=== PATIENT | female | born 1955 | race Caucasian/White ===

== ENCOUNTER 2017-09-24 19:26 | Emergency (ER) | payer BC, OTHER ==
[2017-09-24] MEDS ORDERED: BACITRACIN OINT TOP STA (20:23)
[2017-09-24] MEDS ORDERED: ACETAMINOPHEN 325 MG TABLET PO STA (20:23)
[2017-09-24] MEDS ORDERED: IBUPROFEN 400 MG TABLET PO STA (20:23)
[2017-09-24] MEDS ORDERED: IBUPROFEN 400 MG TABLET PO ONE (20:28)
[2017-09-24] MEDS ORDERED: ACETAMINOPHEN 500 MG TABLET PO ONE (20:28)
[2017-09-24] MEDS ORDERED: ACETAMINOPHEN 325 MG TABLET PO ONE (20:34)
--- NOTE | 2017-09-24 20:58 | ED Physician Documentation ---
PD HPI UPPER EXT INJURY - Stated complaint Stated Complaint: ARM BURN - Chief complaint Chief Complaint: Burn - History obtained from History obtained from: Patient, Friend - History of Present Illness Location: Right, Forearm Type of injury: Burn Where injury occurred: Home Timing - onset: How many minutes ago (30) Timing - details: Abrupt onset, Still present Worsened by: Palpating Similar symptoms before: Has not had sx before Recently seen: Not recently seen - Additonal information Additional information: Patient is a 61 year old female with no significant past medical history who is presenting to the emergency department for a burn. Patient states she was making pasta and she spilled the boiling water on her right upper arm. Review of Systems Constitutional: denies: Fever, Chills Eyes: reports: Reviewed and negative Ears: reports: Reviewed and negative Nose: reports: Reviewed and negative Throat: reports: Reviewed and negative Cardiac: reports: Reviewed and negative Respiratory: reports: Reviewed and negative GI: reports: Reviewed and negative : reports: Reviewed and negative Skin: reports: Rash, Lesions Musculoskeletal: reports: Extremity pain Neurologic: denies: Generalized weakness, Focal weakness, Numbness Immunocompromised: denies: Immunocompromised PD PAST MEDICAL HISTORY - Past Medical History Past Medical History: Yes Endocrine/Autoimmune: HyPOthyroidism - Past Surgical History Past Surgical History: Yes General: Cholecystectomy, 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, Oophrectomy - Present Medications Home Medications: Ambulatory Orders Medication Instructions Recorded Confirmed Calcium Carbonate/Vitamin D3 1 each PO DAILY 09/24/17 09/24/17 [Calcium 250-Vit D3 125 Tablet] Digestive 8/L.acidoph/Pectin 1 tab PO DAILY 09/24/17 09/24/17 [Digestive Enzymes Tablet] Magnesium 250 mg PO DAILY 09/24/17 09/24/17 Thyroid,Pork [Nature-Throid] 1 tab PO DAILY 09/24/17 09/24/17 - Allergies Allergies/Adverse Reactions: Allergies Allergy/AdvReac Type Severity Reaction Status Date / Time ciprofloxacin [From Cipro] Allergy Rash Verified 09/24/17 19:50 Penicillins Allergy Unknown Verified 09/24/17 19:49 Sulfa (Sulfonamide Allergy Rash Verified 09/24/17 19:50 Antibiotics) - Social History Does the pt smoke?: No Smoking Status: Never smoker Does the pt drink ETOH?: No Does the pt have substance abuse?: No - Immunizations Immunizations are current?: Yes - POLST Patient has POLST: No PD ED PE NORMAL - Vitals Vital signs reviewed: Yes - General General: Alert and oriented X 3, Well developed/nourished - HEENT HEENT: Atraumatic, PERRL - Cardiac Cardiac: RRR, No murmur - Respiratory Respiratory: No respiratory distress - Abdomen Abdomen: Non distended - Neuro Neuro: Alert and oriented X 3, No motor deficit, No sensory deficit, Normal speech Eye Opening: Spontaneous Motor: Obeys Commands Verbal: Oriented GCS Score: 15 - Psych Psych: Normal mood PD ED PE EXPANDED - General General: Alert, In Pain - Derm Derm: Burn(s) (partial thickness burn of distal forearm with one blister. approx 1% of bsa. 6cm, no circumfrential) - Extremities Extremities: Right forearm (burn of distal portion of anterior forearm) Results - Vitals Vitals: Vital Signs - 24 hr 09/24/17 09/24/17 19:30 21:14 Temperature 36.6 C 36.6 C Heart Rate 83 74 Respiratory 18 18 Rate Blood Pressure 152/95 H 144/96 H O2 Saturation 97 98 Oxygen O2 Source Room air PD MEDICAL DECISION MAKING - ED course Complexity details: reviewed old records, reviewed results, re-evaluated patient , considered differential, d/w patient, d/w wealth management consultant ED course: Patient was seen and examined at bedside. Patient stated that she did not want any narcotics and was treated with tylenol and ibuprofen. Burn was dressed and the burn center was called. Follow up appointment was arranged, and patient was given the exercises to keep the area mobile. patient and friends felt comfortable with the plan and were stable for discharge with outpatient follow up. Departure - Departure Disposition: 01 Home, Self Care Clinical Impression: Partial thickness burn of right forearm Condition: Good Instructions: ED Burn D 2nd Follow-Up: Ana Kee MD [Primary Care Provider[facility] Comments: Your symptoms today are being caused by a partial thickness burn. You can take motrin or tylenol as needed for pain and keep the area clean and dry. You should apply the bacitracin and dressing daily. You should due the burn videos , 307 on you tube, every hour. You will be getting a call by the burn center in the next few days to schedule a follow up appointment. If you don't hear from them call the number listed on your handout. You should monitor for signs of infection. You may return to the emergency department at any time for new, worsening or uncontrollable symptoms. Discharge Date/Time: 09/24/17 21:17
[2017-09-24] MEDS ORDERED: BACITRACIN OINT TOP ONE (21:12)
[2017-09-24 21:14] VITALS: BP 144/96
== END 2017-09-24 21:17 | disposition home or self-care (01) ==
LOC: ED 19:26
DX: T22.211A Burn of second degree of right forearm, initial encounter (principal); T31.0 Burns involving less than 10% of body surface; X12.XXXA Contact with other hot fluids, initial encounter; Y93.G3 Activity, cooking and baking; Y92.010 Kitchen of single-family (private) house as the place of occurrence of the external cause; E03.9 Hypothyroidism, unspecified
CPT/HCPCS: 99283; A9270

== ENCOUNTER 2018-01-11 07:21 | Observation (INO) | payer BC ==
--- NOTE | 2018-01-11 07:44 | ED Physician Documentation ---
History of Present Illness - Stated complaint Stated Complaint: GLF/HEAD AND FACIAL LAC - Chief complaint Chief Complaint: Trauma Hd/Nk - History obtained from History obtained from: Patient, Family - History of Present Illness Timing: How many hours ago (1) Pain level max: 10 Pain level now: 10 Improved by: rest Worsened by: movement, palpation - Additonal information Additional information: Patient is a 62 year old female, states she was lightheaded walking down the stairs this am. States sat down on a bench and then awoke on the floor. Has had syncope x 1 in the past after removal of a meningioma. heard the fall and found her on the ground. +N/V after the fall. States feels anxious now. Review of Systems Ten Systems: 10 systems reviewed and negative Constitutional: denies: Fever, Chills Nose: reports: Epistaxis Throat: denies: Sore throat Cardiac: denies: Chest pain / pressure Respiratory: denies: Cough GI: denies: Abdominal Pain, Nausea, Vomiting, Diarrhea Skin: denies: Rash Musculoskeletal: denies: Neck pain, Back pain Neurologic: reports: Headache, Head injury, LOC. 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 - Present Medications Home Medications: Ambulatory Orders Medication Instructions Recorded Confirmed Calcium Carbonate/Vitamin D3 1 each PO DAILY 09/24/17 09/24/17 [Calcium 250-Vit D3 125 Tablet] Digestive 8/L.acidoph/Pectin 1 tab PO DAILY 09/24/17 09/24/17 [Digestive Enzymes Tablet] Magnesium 250 mg PO DAILY 09/24/17 09/24/17 Thyroid,Pork [Nature-Throid] 1 tab PO DAILY 09/24/17 09/24/17 - Allergies Allergies/Adverse Reactions: Allergies Allergy/AdvReac Type Severity Reaction Status Date / Time ciprofloxacin [From Cipro] Allergy Rash Verified 09/24/17 19:50 Penicillins Allergy Unknown Verified 09/24/17 19:49 Sulfa (Sulfonamide Allergy Rash Verified 09/24/17 19:50 Antibiotics) - Social History Does the pt smoke?: No Smoking Status: Never smoker Does the pt drink ETOH?: No Does the pt have substance abuse?: No - Immunizations Immunizations are current?: Yes - POLST Patient has POLST: No PD ED PE NORMAL - Vitals Vital signs reviewed: Yes - General General: Alert and oriented X 3, No acute distress, Well developed/nourished - HEENT HEENT: Atraumatic, PERRL, EOMI, Ears normal, Moist mucous membranes, Pharynx benign, Other (R supraorbital swelling, no scalp hematomas but dried blood in her hair. Also superficial laceration 1cm across the bridge of nose. Moderate nasal swelling, dried interior blood. no septal hematoma. ) - Neck Neck: Supple, no meningeal sign, No bony TTP - Cardiac Cardiac: RRR, Strong equal pulses - Respiratory Respiratory: No respiratory distress, Clear bilaterally - Abdomen Abdomen: Soft, Non tender, Non distended - Back Back: No spinal TTP - Derm Derm: Warm and dry, No rash - Extremities Extremities: No deformity, No tenderness to palpate, Normal ROM s pain - Neuro Neuro: Alert and oriented X 3, pool hand 2-12 intact Eye Opening: Spontaneous Motor: Obeys Commands Verbal: Oriented GCS Score: 15 - Psych Psych: Normal mood, Normal affect Results - Vitals Vitals: Vital Signs - 24 hr 01/11/18 01/11/18 07:26 09:24 Temperature 36.8 C Heart Rate 71 80 Respiratory 13 15 Rate Blood Pressure 115/73 100/58 L O2 Saturation 100 97 Oxygen O2 Source Room air - EKG (time done) 0730 Rate: Rate (enter#) (76) Rhythm: NSR [place]: Normal Intervals: Normal DE QRS: Normal Ischemia: Normal ST segments - Labs Labs: Laboratory Tests 01/11/18 01/11/18 01/11/18 07:48 07:48 07:48 WBC 5.6 RBC 4.71 Hgb 14.7 Hct 43.6 MCV 92.6 MCH 31.2 H MCHC 33.7 RDW 12.4 Plt Count 255 MPV 8.1 Neut # 3.7 Lymph # 1.3 L [place] # 0.5 Eos # 0.0 Baso # 0.0 Absolute Nucleated RBC 0.00 Nucleated RBC % 0.0 Sodium 136 Potassium 3.8 Chloride 102 Carbon Dioxide 23 Anion Gap 11.0 BUN 13 Creatinine 0.7 Estimated GFR (MDRD) 85 L Glucose 140 H Calcium 9.1 Total Bilirubin 0.5 AST 35 ALT 34 Alkaline Phosphatase 115 Troponin I < 0.04 Total Protein 7.5 Albumin 4.3 Globulin 3.2 Albumin/Globulin Ratio 1.3 Lipase 40 - Rads (name of study) head CT Radiology: Prelim report reviewed, EMP read contemporaneously, See rad report ( No intracranial abnormality. Fracture the nasal bones, depression of the right nasal ala. Soft tissue swelling and subcutaneous emphysema of the nose, and right forehead subcutaneous hematoma. Status post right frontal craniotomy. Chronic left maxillary sinusitis. ) cxr Radiology: Prelim report reviewed, EMP read contemporaneously, See rad report ( no acute disease) facial bones ct Radiology: Prelim report reviewed, EMP read contemporaneously, See rad report ( No intracranial abnormality. Fracture the nasal bones, depression of the right nasal ala. Soft tissue swelling and subcutaneous emphysema of the nose, and right forehead subcutaneous hematoma. Status post right frontal craniotomy. Chronic left maxillary sinusitis. ) Procedures - Laceration (location) nose Length in cm: 1 Wound type: Curved, Superficial, Clean Neurovascular status: Sensory intact, Motor intact, Vascular intact Wound Preparation: Irrigated copiously NS Skin layer closure: Dermabond Other: Patient tolerated well, No complications, Neurovascular intact, Tetanus booster given (tdap) Complexity: Simple PD MEDICAL DECISION MAKING - ED course Complexity details: reviewed results, re-evaluated patient, considered differential, d/w patient, d/w family, d/w sap solution manager consultant ED course: Patient is a 62-year-old female who had a syncopal event today at home, there was no evidence of her breaking her fall with her hands, landed on her face. Was unconscious. Concern for possible cardiac etiology. Will place in observation for telemetry monitoring. Does have a nasal bone fracture and will need to follow-up with her PCP after discharge, with possible oral maxillofacial or ENT follow-up depending on the appearance after swelling has decreased. Does not have any suturable lacerations, but dermabond used on the nasal laceration. Discussed the case with Dr. Cantu, hospitalist who accepts. This document was made in part using voice recognition software. While efforts are made to proofread this document, sound alike and grammatical errors may occur. Departure - Departure Disposition: ED Place in Observation Clinical Impression: Epistaxis Syncope Qualifiers: Syncope type: unspecified Qualified Code(s): R55 - Syncope and collapse Nasal bone fractures Qualifiers: Encounter type: initial encounter Fracture type: closed Qualified Code(s): S02.2XXA - Fracture of nasal bones, initial encounter for closed fracture Condition: Stable
[2018-01-11 08:00] LABS: BASOPHILS % (AUTO) 0.7 %; EOSINOPHILS % (AUTO) 0.5 %; HGB - HEMOGLOBIN 14.7 g/dL (12.0-16.0); LYMPHOCYTES # (AUTO) 1.3 10^3/uL (1.5-3.5); LYMPHOCYTES % (AUTO) 23.7 %; MEAN CORPUSCULAR HEMOGLOBIN 31.2 pg (27.0-31.0); MEAN CORPUSCULAR HGB CONC 33.7 g/dL (32.0-36.0); MEAN CORPUSCULAR VOLUME 92.6 fL (81.0-99.0); MEAN PLATELET VOLUME 8.1 fL (7.9-10.8); MONOCYTES # (AUTO) 0.5 10^3/uL (0.0-1.0); MONOCYTES % (AUTO) 9.3 %; NEUTROPHILS # (AUTO) 3.7 10^3/uL (1.5-6.6); NEUTROPHILS % (AUTO) 65.8 %; PLT - PLATELET COUNT 255 10^3/uL (130-450); RED BLOOD COUNT 4.71 10^6/uL (4.20-5.40); RED CELL DISTRIBUTION WIDTH 12.4 % (12.0-15.0); WHITE BLOOD COUNT 5.6 x10^3/uL (4.8-10.8)
[2018-01-11] MEDS ORDERED: TETANUS/DIPHTHERIA/PERTUSSIS 0.5 ML SYRINGE IM ONE (08:05)
[2018-01-11] MEDS ORDERED: ACETAMINOPHEN 1,000 MG/100 ML 100 ML IV STA (08:05)
[2018-01-11 08:11] LABS: ALBUMIN 4.3 g/dL (3.2-5.5); ALBUMIN/GLOBULIN RATIO 1.3 (1.0-2.2); BILIRUBIN,TOTAL 0.5 mg/dL (0.2-1.0); CALCIUM 9.1 mg/dL (8.5-10.3); CREATININE 0.7 mg/dL (0.4-1.0); TOTAL PROTEIN 7.5 g/dL (6.7-8.2)
--- NOTE | 2018-01-11 08:43 | XRAY Preliminary Report ---
Exam: XR CHEST 1 VIEW X-RAY IMPRESSION: 1. No radiographic evidence for acute cardiopulmonary process. [facility] SITE ID: [id number]
--- NOTE | 2018-01-11 08:43 | XRAY Report ---
EXAM: CHEST RADIOGRAPHY EXAM DATE: 01/11/2018 08:26 AM. CLINICAL HISTORY: Syncope. COMPARISON: None. TECHNIQUE: 1 view. FINDINGS: Lungs/Pleura: Mild biapical scarring. No other airspace opacity. No evidence of pleural effusion or p neumothorax. Mediastinum: Within exam limitations, the cardiomediastinal contour is normal. Other: No acute osseous thoracic abnormality seen. IMPRESSION: 1. No radiographic evidence for acute cardiopulmonary process. [facility] Referring Provider Line: [phone] SITE ID: [id number]
[2018-01-11] MEDS ORDERED: ONDANSETRON 4 MG/2 ML VIAL IVP STA (08:44)
--- NOTE | 2018-01-11 08:46 | CT Report ---
EXAM: CT MAXILLOFACIAL WITHOUT IV CONTRAST EXAM DATE: 01/11/2018. CLINICAL HISTORY: Syncope. Fell downstairs, head and facial injuries. Swelling above the right eye an d laceration across the nose. COMPARISONS: None. TECHNIQUE: Thin-section axial images were acquired of the face without contrast. Post-processing: Cor onal and sagittal reformats. Other: None. In accordance with CT protocol optimization, one or more of the following dose reduction techniques w ere utilized for this exam: automated exposure control, adjustment of mA and/or KV based on patient s ize, or use of iterative reconstructive technique. FINDINGS: Soft Tissue: Right forehead subcutaneous hematoma. Soft tissue swelling of the nose and subcutaneous emphysema of the nasal soft tissues. Orbits: No fracture demonstrated. The globes and the musculature appear normal. Bones: Fracture the nasal bones, the right nasal ala is depressed 3-4 mm. Temporomandibular Joints: The temporomandibular joints are symmetric and normally located. Sinuses: Mild left maxillary sinus mucosal thickening. No air-fluid levels. Other: Degenerative disk disease and spondylosis of the cervical spine between C3 and C6, 2 mm degene rative retrolisthesis of C4 on C5. IMPRESSION: The right nasal ala is depressed 3-4 mm. Right nasal septal deviation. Soft tissue swelling and subcutaneous emphysema of the nose. Multilevel degenerative disk disease and spondylosis of the cervical spine. Right forehead subcutaneous hematoma. [facility] Referring Provider Line: [phone] SITE ID: [id number]
--- NOTE | 2018-01-11 08:50 | CT Report ---
EXAM: CT HEAD WITHOUT IV CONTRAST EXAM DATE: 01/11/2018 08:21 AM. CLINICAL HISTORY: Syncope. Fell. Head and facial injuries. COMPARISON: Maxillofacial CT done at the same time. TECHNIQUE: Multiaxial CT images were obtained from the foramen magnum to the vertex. Reformats: Coron al. IV contrast: None. In accordance with CT protocol optimization, one or more of the following dose reduction techniques w ere utilized for this exam: automated exposure control, adjustment of mA and/or KV based on patient s ize, or use of iterative reconstructive technique. FINDINGS: Parenchyma: No intraparenchymal hemorrhage. No evidence of mass, midline shift, or CT findings of inf arction. Hutson-white differentiation is distinct. Extraaxial Spaces: Normal. No hemorrhage or mass demonstrated. Ventricles: Normal in size and position. Sinuses and Orbits: Mucosal thickening of the left maxillary sinus. Bones: Fracture the nasal bones, depression of the right nasal ala. Right frontal craniotomy, metal p late in place. Soft Tissues: Swelling and subcutaneous emphysema of the nose. Right subcutaneous forehead hematoma. IMPRESSION: No intracranial abnormality. Fracture the nasal bones, depression of the right nasal ala. Soft tissue swelling and subcutaneous emphysema of the nose, and right forehead subcutaneous hematoma . Status post right frontal craniotomy. Chronic left maxillary sinusitis. [facility] Referring Provider Line: [phone] SITE ID: [id number]
[2018-01-11] MEDS ORDERED: SODIUM CHLORIDE 0.9% 1,000 ML IV ONE ×2 (09:49)
[2018-01-11] MEDS ORDERED: oxyCODONE 5 MG TABLET PO PRN (10:18)
[2018-01-11] MEDS ORDERED: SODIUM CHLORIDE FLUSH 0.9% 10 ML SYRINGE IVP PRN (10:18)
[2018-01-11] MEDS ORDERED: PROCHLORPERAZINE 10 MG/2 ML VIAL IVP PRN (10:18)
[2018-01-11] MEDS ORDERED: TEMAZEPAM 15 MG CAPSULE PO PRN (10:18)
--- NOTE | 2018-01-11 11:34 | HISTORY & PHYSICAL EXAMINATION ---
Chief Complaint - Chief Complaint Chief Complaint: Syncope History of Present Illness - Admitted From Admitted From:: Home - History Obtained From Records Reviewed: Yes History obtained from: Patient, , ER physician - History of Present Illness HPI Comment/Other: Mrs. Marivel Kelly is a pleasant 62 year old woman who went downstairs in her home around 7 am this morning, and became lightheaded. She remembers sitting down on a bench in the entryway of her home, and the next thing she remembers is waking up on the floor. She had apparently fallen, did not brace herself, and landed face first, breaking her nose. She is admitted for a syncopal workup to observation unit on telemetry. 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 - Substance History Use: Uses substance without health or social issues: NONE Abuse: Recurrent use of substance despite neg consequences: NONE Dependence: Experiences withdrawal or developed tolerances: NONE - POLST Patient has POLST: No POLST Status: Full Code Meds/Allgy - Home Medications Home Medications: Ambulatory Orders Medication Instructions Recorded Confirmed Calcium Carbonate/Vitamin D3 1 each PO DAILY 09/24/17 09/24/17 [Calcium 250-Vit D3 125 Tablet] Digestive 8/L.acidoph/Pectin 1 tab PO DAILY 09/24/17 09/24/17 [Digestive Enzymes Tablet] Magnesium 250 mg PO DAILY 09/24/17 09/24/17 Thyroid,Pork [Nature-Throid] 1 tab PO DAILY 09/24/17 09/24/17 - Allergies Allergies/Adverse Reactions: Allergies Allergy/AdvReac Type Severity Reaction Status Date / Time ciprofloxacin [From Cipro] Allergy Rash Verified 09/24/17 19:50 Penicillins Allergy Unknown Verified 09/24/17 19:49 Sulfa (Sulfonamide Allergy Rash Verified 09/24/17 19:50 Antibiotics) Review of Systems - Constitutional Constitutional: denies: Fatigue, Fever, Chills, Malaise, Night sweats - Eyes Eyes: denies: Pain, Irritation, Blurred vision, Dipolpia - Ears, Nose & Throat Ears, Nose & Throat: denies: Ear pain, Hearing loss, Hearing aids, Tinnitus, Vertigo, Nasal pain, Nasal discharge, Nosebleeds - Cardiovascular Cariovascular: reports: Lightheadedness, Syncope. denies: Irregular heart rate , Palpitations, Chest pain, Edema, Exertional dyspnea, Decr. exercise tolerance - Respiratory Respiratory: denies: Cough, Sputum production, Wheezing, Snoring, Hemoptysis, Orthopnea, SOB at rest, SOB with exertion - Gastrointestinal Gastrointestinal: denies: Abdominal pain, Abdominal distention, Constipation, Diarrhea, Change in bowel habits, Rectal bleeding, Bloody stools - Genitourinary Genitourinary: denies: Dysuria, Frequency, Urgency, Hematuria - Musculoskeletal Musculoskeletal: denies: Muscle pain, Back pain, Muscle aches, Stiffness - Integumentary Integumentary: denies: Rash, Pruritis, Lesions, Dryness - Neurological Neurological: denies: General weakness, Focal weakness, Headache, Dizziness - Psychiatric Psychiatric: denies: Depression, Anxiety, Suicidal, Hallucinations - Endocrine Endocrine: denies: Polyuria, Polydypsia, Polyphagia - Hematologic/Lymphatic Hematologic/Lymphatic: denies: Anemia, Bruising, Petechiae, Lymphadenopathy - All Other Systems All Other Systems: reports: Reviewed and negative Exam - Vital Signs Reviewed Vital Signs: Yes Vital Signs: Vital Signs x48h Temp Pulse Resp BP Pulse Ox 01/11/18 10:45 78 11 L 103/61 12 L 01/11/18 09:24 80 15 100/58 L 97 01/11/18 07:26 36.8 C 71 13 115/73 100 - Physical Exam General Appearance: positive: No acute distress, Alert Eyes Bilateral: positive: Normal inspection, PERRL, EOMI, No lid inflammation, Conjunctivae nml, No scleral icterus ENT: positive: Other (Swelling, cut to bridge of nose) Neck: positive: Nml inspection, Thyroid nml, No JVD, Trachea midline. negative : Thyromegaly Respiratory: positive: Chest non-tender, No respiratory distress, Breath sounds nml. negative: Wheezes, Rales, Rhonchi Cardiovascular: positive: Regular rate & rhythm, No murmur, No gallop Peripheral Pulses: positive: 1+ Abdomen: positive: Non-tender, No organomegaly, Nml bowel sounds, No distention. negative: Guarding, Rebound Back: positive: Nml inspection. negative: CVA tenderness (R), CVA tenderness (L ) Skin: positive: Color nml, No rash, Warm, Dry, Laceration (cm) (small lacerations to face). negative: Cyanosis Extremities: positive: Non-tender, Full ROM, Nml appearance, No pedal edema Neurologic/Psychiatric: positive: Oriented x3, CN's nml (2-12), Motor nml, Sensation nml, Mood/affect nml Conclusion/Plan - Problem List (1) Syncope Conclusion/Plan: Pt is admitted to observation bed on telemetry, checking carotid US and echo cardiogram. Continue home meds, will DC pt if workup is negative. Qualifiers: Syncope type: unspecified Qualified Code(s): R55 - Syncope and collapse (2) Nasal bone fractures Conclusion/Plan: Pt will f/u with ENT as an outpatient. Qualifiers: Encounter type: initial encounter Fracture type: closed Qualified Code(s) : S02.2XXA - Fracture of nasal bones, initial encounter for closed fracture (3) Osteopenia Conclusion/Plan: COntinue home Calcium carbonate. (4) Chronic constipation Conclusion/Plan: Continue home magnesium. - Lab Results Lab results reviewed: Yes Fish Bones: 01/11/18 07:48 01/11/18 07:48 - Diagnostic Imaging Results Diagnostic Imaging Results: positive: Final report reviewed Diagnostic Imaging Results Comments: EXAM: CHEST RADIOGRAPHY EXAM DATE: 01/11/2018 08:26 AM. CLINICAL HISTORY: Syncope. COMPARISON: None. TECHNIQUE: 1 view. FINDINGS: Lungs/Pleura: Mild biapical scarring. No other airspace opacity. No evidence of pleural effusion or pneumothorax. Mediastinum: Within exam limitations, the cardiomediastinal contour is normal. Other: No acute osseous thoracic abnormality seen. IMPRESSION: 1. No radiographic evidence for acute cardiopulmonary process. EXAM: CT HEAD WITHOUT IV CONTRAST EXAM DATE: 01/11/2018 08:21 AM. CLINICAL HISTORY: Syncope. Fell. Head and facial injuries. COMPARISON: Maxillofacial CT done at the same time. TECHNIQUE: Multiaxial CT images were obtained from the foramen magnum to the vertex. Reformats: Coronal. IV contrast: None. In accordance with CT protocol optimization, one or more of the following dose reduction techniques were utilized for this exam: automated exposure control, adjustment of mA and/or KV based on patient size, or use of iterative reconstructive technique. FINDINGS: Parenchyma: No intraparenchymal hemorrhage. No evidence of mass, midline shift, or CT findings of infarction. Hutson-white differentiation is distinct. Extraaxial Spaces: Normal. No hemorrhage or mass demonstrated. Ventricles: Normal in size and position. Sinuses and Orbits: Mucosal thickening of the left maxillary sinus. Bones: Fracture the nasal bones, depression of the right nasal ala. Right frontal craniotomy, metal plate in place. Soft Tissues: Swelling and subcutaneous emphysema of the nose. Right subcutaneous forehead hematoma. IMPRESSION: No intracranial abnormality. Fracture the nasal bones, depression of the right nasal ala. Soft tissue swelling and subcutaneous emphysema of the nose, and right forehead subcutaneous hematoma. Status post right frontal craniotomy. Chronic left maxillary sinusitis. EXAM: CT MAXILLOFACIAL WITHOUT IV CONTRAST EXAM DATE: 01/11/2018. CLINICAL HISTORY: Syncope. Fell downstairs, head and facial injuries. Swelling above the right eye and laceration across the nose. COMPARISONS: None. TECHNIQUE: Thin-section axial images were acquired of the face without contrast. Post-processing: Coronal and sagittal reformats. Other: None. In accordance with CT protocol optimization, one or more of the following dose reduction techniques were utilized for this exam: automated exposure control, adjustment of mA and/or KV based on patient size, or use of iterative reconstructive technique. FINDINGS: Soft Tissue: Right forehead subcutaneous hematoma. Soft tissue swelling of the nose and subcutaneous emphysema of the nasal soft tissues. Orbits: No fracture demonstrated. The globes and the musculature appear normal. Bones: Fracture the nasal bones, the right nasal ala is depressed 3-4 mm. Temporomandibular Joints: The temporomandibular joints are symmetric and normally located. Sinuses: Mild left maxillary sinus mucosal thickening. No air-fluid levels. Other: Degenerative disk disease and spondylosis of the cervical spine between C3 and C6, 2 mm degenerative retrolisthesis of C4 on C5. IMPRESSION: The right nasal ala is depressed 3-4 mm. Right nasal septal deviation. Soft tissue swelling and subcutaneous emphysema of the nose. Multilevel degenerative disk disease and spondylosis of the cervical spine. Right forehead subcutaneous hematoma. Core Measures - Anticipated LOS I expect patient to be DC'd or transferred within 96 hours.: Yes - DVT/VTE - Prophylaxis VTE/DVT Device ordered at admit?: Yes
[2018-01-11] MEDS: D5.45NS W/20 MEQ KCL 1,000 ML IV SCH ×2 (12:55→22:46)
[2018-01-11] MEDS: SODIUM CHLORIDE FLUSH 0.9% 10 ML SYRINGE IVP SCH (12:55)
[2018-01-11 13:54] LABS: BILIRUBIN,URINE NEGATIVE (NEGATIVE); GLUCOSE, URINE (UA) NEGATIVE (NEGATIVE); KETONES,URINE (UA) NEGATIVE (NEGATIVE); LEUKOCYTE ESTERASE, URINE NEGATIVE (NEGATIVE); NITRITE,URINE NEGATIVE (NEGATIVE); OCCULT BLOOD,URINE NEGATIVE (NEGATIVE); PROTEIN,URINE NEGATIVE (NEGATIVE); UROBILINOGEN,URINE 0.2 (NORMAL) E.U./dL (NORMAL)
[2018-01-11 13:58] LABS: CLARITY,URINE CLEAR (CLEAR)
[2018-01-11] MEDS: IBUPROFEN 400 MG TABLET PO PRN (14:26)
--- NOTE | 2018-01-11 14:43 | Ultrasound Report ---
EXAM: CAROTID DOPPLER ULTRASOUND EXAM DATE: 01/11/2018 11:32 AM. CLINICAL HISTORY: Syncope. COMPARISON: None. TECHNIQUE: Real-time sonographic vascular imaging was performed by the orthopedic technician through the [place] arterial system with a linear transducer utilizing color-flow, Doppler flow and spectral analysis. Multiple field support representative static images were saved for review. FINDINGS: PSV cm/sec Right: CCA proximal 124 CCA distal 109 ECA 179 Carotid bulb 115 ICA proximal 103 ICA mid 101 ICA distal 115 Vertebral artery 102. Antegrade. Left: CCA proximal 117 CCA distal 137 ECA 186 Carotid bulb 310 ICA proximal 118 ICA mid 100 ICA distal 97 Vertebral artery 81. Antegrade. Although peak systolic velocity at the left carotid bulb measures 310 cm/s, only mild narrowing is se en visually without significant plaques. IMPRESSION: Although the peak systolic velocity of the left carotid bulb is significantly high, only mild narrowing is seen visually without significant plaque. Consider CT angiography for further evalu ation. Validated velocity measurements with angiographic measurements and velocity criteria are extrapolated from diameter data as defined by the Society of Radiologists in Ultrasound Consensus Conference Radi ology 2003; 229;340-346. [facility] Referring Provider Line: [phone] SITE ID: [id number]
[2018-01-11] MEDS ORDERED: IOPAMIDOL-300 100 ML VIAL ONE (19:48)
[2018-01-11] MEDS: ONDANSETRON 4 MG/2 ML VIAL IVP PRN (21:04)
[2018-01-11] MEDS ORDERED: IOPAMIDOL-300 100 ML VIAL IVP ONE (21:04)
[2018-01-11] MEDS: ACETAMINOPHEN 1,000 MG/100 ML 100 ML IV PRN (21:19)
--- NOTE | 2018-01-11 22:04 | CT Report ---
EXAM: CT ANGIOGRAM NECK EXAM DATE: 01/11/2018 09:04 PM. CLINICAL HISTORY: Abnormal finding on carotid doppler. COMPARISON: Ultrasound carotid Doppler 01/11/2018 TECHNIQUE: Routine axial helical imaging was performed from the skull base through the aortic arch. R econstructions: Routine multiplanar 3D MIP reconstructions. IV Contrast: Yes. 80 cc Isovue-300 Evalua tion of arterial stenosis is based on a NASCET method of measurement. In accordance with CT protocol optimization, one or more of the following dose reduction techniques w ere utilized for this exam: automated exposure control, adjustment of mA and/or KV based on patient s ize, or use of iterative reconstructive technique. FINDINGS: Right Carotid: The common carotid, internal carotid, and external carotid arteries are widely patent. No dissection, significant atherosclerotic plaque, or calcification identified. Left Carotid: The common carotid, internal carotid, and external carotid arteries are widely patent. No dissection, significant atherosclerotic plaque, or calcification identified. Vertebrals: The right vertebral artery is dominant. The vertebrobasilar system shows no stenoses. Intracranial Circulation: Normal. No stenoses or aneurysms of the visualized vessels. Other: The visualized lung apices demonstrate mild centrilobular emphysema. The visualized osseous st ructures demonstrate no acute fracture or malalignment. The visualized soft tissues of the neck demon strate no acute abnormality. IMPRESSION: 1. No CTA evidence of hemodynamically significant stenosis, dissection, occlusion, aneurysm, or vascu lar malformation within the extracranial arteries or the visualized portions of the intracranial casey shelli. [facility] Referring Provider Line: [phone] SITE ID: [id number]
--- NOTE | 2018-01-11 22:04 | CT Preliminary Report ---
Exam: CT NECK ANGIO IMPRESSION: 1. No CTA evidence of hemodynamically significant stenosis, dissection, occlusion, aneurysm, or vascu lar malformation within the extracranial arteries or the visualized portions of the intracranial casey shelli. [facility] SITE ID: [id number]
[2018-01-12] MEDS: SODIUM CHLORIDE FLUSH 0.9% 10 ML SYRINGE IVP SCH ×2 (00:56→09:16)
[2018-01-12] MEDS: IBUPROFEN 400 MG TABLET PO PRN (01:58)
[2018-01-12] MEDS: ACETAMINOPHEN 1,000 MG/100 ML 100 ML IV PRN (07:41)
[2018-01-12] MEDS: ONDANSETRON 4 MG/2 ML VIAL IVP PRN (07:46)
[2018-01-12] MEDS ORDERED: THYROID PORK PO SCH (09:00)
[2018-01-12] MEDS ORDERED: CALCIUM CARB (OYSTER SHELL) 500 MG TABLET PO SCH (09:00)
[2018-01-12] MEDS ORDERED: POLYETHYLENE GLYCOL 3350 17 GM PACKET PO SCH (09:00)
[2018-01-12] MEDS ORDERED: [UNRECOGNIZED DRUG - OTHER] PO SCH (09:00)
[2018-01-12] MEDS ORDERED: MAGNESIUM 250 MG PO SCH (09:00)
[2018-01-12] MEDS ORDERED: DIGESTIVE PO SCH (09:00)
[2018-01-12 09:02] VITALS: BP 100/53
--- NOTE | 2018-01-12 10:18 | Discharge Plan ---
Discharge Plan Disposition: Home, Self Care Condition: Stable Prescriptions: Acetaminophen [Tylenol] 650 mg PO Q6H PRN #30 tab PRN Reason: Pain Ondansetron Odt [Zofran] 4 mg TL Q6H PRN #20 tablet PRN Reason: Nausea / Vomiting Diet: Regular Activity Restrictions: Activity as Tolerated Shower Restrictions: No Driving Restrictions: No Weight Bearing: Full Weight Additional Instructions or Follow Up instructions: You were admitted to the hospital for SYNCOPE (this means passing out) The cause of your syncope is not clear, possibly due to sharp decrease in your blood pressure, possibly dehydration Your heart is beating regularly The heart function is normal, no valvular problems The neck vessels have no stenosis, the left carotid artery does have slightly higher pressures. This can be followed up for your PCP. You blood pressure has normalized, this may be due ot the new cortisol meds your doctor added or may be unrelated. I recommend holding these meds until follow-up appointment check your blood pressure daily. If BP starts rising >140 /80 then resume them and be careful over the next 48hr. You suffered a fracture of the nasal bone, you should follow-up with you PCP within a week, if swelling improves and there is deformity or you have trouble breathign you should be reffered to ENT In the meantime, protect your nose from further bumps/trauma. If you develop nosebleed return to the ED. No Smoking: If you smoke, Please STOP! Call for help. Follow-up with: Ana Kee MD [Primary Care Provider] - 1 Week
--- NOTE | 2018-01-12 10:28 | DISCHARGE SUMMARY ---
Discharge Summary Admit Date: 01/11/18 Discharge Date: 01/12/18 Discharging Provider: Kay ELLIOTT Primary Care Provider: Ana Kee Code Status: Attempt Resuscitation Condition at Discharge: Stable Discharge Disposition: 01 Home, Self Care - DIAGNOSES Admission Diagnoses: 1. Syncope 2. Nasal fracture 3. Osteopenia 4. Chronic constipation Discharge Diagnoses with Status of Each Condition: 1. Syncope (resolved, unclear etiology) 2. Nasal fracture (stable) 3. Osteopenia (chronic, stable) 4. Chronic constipation (chronic, stable) 5. Hypothryoidism (chronic, stable) 6. ?cortisol deficiency (reported, not confirmed) - HPI History of Present Illness: Per H&P by Elisha Teresa MD, "Mrs. Marivel Kelly is a pleasant 62 year old woman who went downstairs in her home around 7 am this morning, and became lightheaded. She remembers sitting down on a bench in the entryway of her home, and the next thing she remembers is waking up on the floor. She had apparently fallen, did not brace herself, and landed face first, breaking her nose." - HOSPITAL COURSE Hospital Course: Syncope work-up included telemetry, no ectopy or arrhythmia since admission. CXR without pathology. UA w/o evidence of infection. ECHO with normal EF, no significant valvular disease, mildly elevated pulmonary pressures (of note CTA neck notes centrilobular emphysema in the lung apices) and collapsible IVC with RAP 8. Carotid US with significantly elevated left carotid bulb systolic pressure, only mild narrowing noted. Followed up with CTA neck which revealed no hemodynamically significant stenosis. Patient reports >1mo ago developed HTN to 150/110s, saw PCP and labs checked, told she had "cortisol deficiency". She was given 2 Rx for "cortisol ultrasound manager" and "cortisone". She then had a drop in BP to 100/60s the day of event. ?the cortisol deficiency. Suggest hold cortisol drugs x1week and have PCP perform cortisol stem test to confirm. She should monitor her BP daily in the meantime. If BP >140/80, considering earlier testing or resuming cortisol supplements. CT head with right forehead subq hematoma, right nasal ala fracture. No acute intrancranial abnormality. CT maxilofacial with confirms 3-4mm depression fracture of right nasal ala, right nasal septum deviation and multilevel DJD and spondylosis of C-spine. No need for urgent follow-up, swelling and bruising should improve over 1-2weeks , avoid further trauma. Follow-up with ENT re: deviated septum if symptomatic or plastics if +deformity once swelling resolves. - ALLERGIES Allergies/Adverse Reactions: Allergies Allergy/AdvReac Type Severity Reaction Status Date / Time ciprofloxacin [From Cipro] Allergy Rash Verified 09/24/17 19:50 Penicillins Allergy Unknown Verified 09/24/17 19:49 Sulfa (Sulfonamide Allergy Rash Verified 09/24/17 19:50 Antibiotics) - MEDICATIONS Home Medications: Ambulatory Orders Medication Instructions Recorded Confirmed Calcium Carbonate/Vitamin D3 1 each PO DAILY 09/24/17 01/11/18 [Calcium 250-Vit D3 125 Tablet] Digestive 8/L.acidoph/Pectin 1 tab PO DAILY 09/24/17 01/11/18 [Digestive Enzymes Tablet] Magnesium 250 mg PO DAILY 09/24/17 01/11/18 Thyroid,Pork [Nature-Throid] 32.5 mg PO QDAC 01/11/18 01/11/18 Acetaminophen [Tylenol] 650 mg PO Q6H PRN #30 tab 01/12/18 Ondansetron Odt [Zofran] 4 mg TL Q6H PRN #20 tablet 01/12/18 - PHYSICAL EXAM AT DISCHARGE General Appearance: positive: No acute distress Eyes Bilateral: positive: Other (ecchymosis at the inner canthus, PERRLA) ENT: positive: No signs of dehydration Neck: positive: No JVD Respiratory: positive: Chest non-tender, No respiratory distress, Breath sounds nml Cardiovascular: positive: Regular rate & rhythm, No murmur Peripheral Pulses: positive: 2+ Abdomen: positive: Non-tender, Nml bowel sounds, No distention Back: positive: Nml inspection Skin: positive: Color nml, No rash, Warm, Dry Extremities: positive: Non-tender, Full ROM, Nml appearance Neurologic/Psychiatric: positive: Oriented x3, Motor nml, Sensation nml, Mood/ affect nml - LABS Result Diagrams: 01/11/18 07:48 01/11/18 07:48 - FOLLOW UP Follow Up: Ana Diaz in 1 week - TIME SPENT Time Spent in Discharge (Minutes): 35
== END 2018-01-12 10:57 | disposition home or self-care (01) ==
LOC: ED 07:21 → MS2 10:18 → OBS 20:21
PROVIDERS: ADMIT Hospitalist; ATTEND Nurse Practitioner Acute Care
DX: R55 Syncope and collapse (principal); S02.2XXA Fracture of nasal bones, initial encounter for closed fracture; S00.83XA Contusion of other part of head, initial encounter; W08.XXXA Fall from other furniture, initial encounter; Y92.008 Other place in unspecified non-institutional (private) residence as the place of occurrence of the external cause; J34.2 Deviated nasal septum; M85.80 Other specified disorders of bone density and structure, unspecified site; K59.09 Other constipation; E03.9 Hypothyroidism, unspecified; I10 Essential (primary) hypertension; Z79.899 Other long term (current) drug therapy; Z86.018 Personal history of other benign neoplasm
CPT/HCPCS: 12011; 36415; 70450; 70486; 70498; 71045; 80053; 81003; 83690; 84484; 85025; 90471; 90715; 93005; 93306; 93880; 96361; 96365; 96366; 96375; 96376; 97161; 99218; 99283; 99284; A9270; J0131; Q9967; 81001; 87086

== ENCOUNTER 2018-01-16 07:52 | Emergency (ER) | payer BC ==
--- NOTE | 2018-01-16 08:05 | ED Physician Documentation ---
History of Present Illness - Stated complaint Stated Complaint: DIZZY/SYNCOPE - Chief complaint Chief Complaint: Heent - Additonal information Additional information: hx from pt and EMR admitted 01/11- after syncope with HI - had CT head (nasal fx), EKG tele s ectopy, echo with nl EF, syncope felt possibly 2/2 hypotension 2/2 new rx of "cortisol functional manager" from her natruopath and pt was advised to dc those meds and fup PMD pt did dc those meds no other new recent med changes still with low BP still feels near syncopal has ear congestion /pressure and a cough no fever no CP palp AP urinary sx 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 denies: Fever, Chills Ears: reports: Ear pain Nose: reports: Congestion Cardiac: denies: Chest pain / pressure, Palpitations Respiratory: reports: Cough. denies: Dyspnea GI: denies: Abdominal Pain, Nausea, Vomiting, Diarrhea, Bloody / black stool : denies: Dysuria Neurologic: reports: Generalized weakness, Near syncope Endocrine: denies: Easy bruising / bleeding Immunocompromised: denies: Immunocompromised PD PAST MEDICAL HISTORY - Past Medical History Cardiovascular: None Respiratory: Pneumonia, Other Neuro: Headache/migraine, Motion sickness Endocrine/Autoimmune: HyPOthyroidism GI: Chronic constipation HEENT: None Psych: None Musculoskeletal: Osteopenia Derm: None - Past Surgical History Past Surgical History: Yes General: Cholecystectomy, Appendectomy 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, 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 Neuro: Other - Present Medications Home Medications: Ambulatory Orders Medication Instructions Recorded Confirmed Calcium Carbonate/Vitamin D3 1 each PO DAILY 09/24/17 01/11/18 [Calcium 250-Vit D3 125 Tablet] Digestive 8/L.acidoph/Pectin 1 tab PO DAILY 09/24/17 01/11/18 [Digestive Enzymes Tablet] Magnesium 250 mg PO DAILY 09/24/17 01/11/18 Thyroid,Pork [Nature-Throid] 32.5 mg PO QDAC 01/11/18 01/11/18 Acetaminophen [Tylenol] 650 mg PO Q6H PRN #30 tab 01/12/18 Ondansetron Odt [Zofran] 4 mg TL Q6H PRN #20 tablet 01/12/18 Azithromycin [Zithromax] 250 mg PO DAILY #6 tablet 01/16/18 Meclizine [Antivert] 25 mg PO Q6H PRN #20 tablet 01/16/18 Oxymetazoline HCl [Afrin] 2 spray NS BID PRN #1 bottle 01/16/18 - Allergies Allergies/Adverse Reactions: Allergies Allergy/AdvReac Type Severity Reaction Status Date / Time ciprofloxacin [From Cipro] Allergy Rash Verified 09/24/17 19:50 Penicillins Allergy Unknown Verified 09/24/17 19:49 Sulfa (Sulfonamide Allergy Rash Verified 09/24/17 19:50 Antibiotics) - Social History Does the pt smoke?: No Smoking Status: Never smoker Does the pt drink ETOH?: No Does the pt have substance abuse?: No - Immunizations Immunizations are current?: Yes - POLST Patient has POLST: No POLST Status: Full Code PD ED PE NORMAL - Vitals Vital signs reviewed: Yes - General General: Alert and oriented X 3 - HEENT HEENT: PERRL. No: Atraumatic (aged periorbital bruising), Ears normal (no hemotympanum, + fluid behind TMs) - Neck Neck: Supple, no meningeal sign - Cardiac Cardiac: RRR, No murmur - Respiratory Respiratory: No respiratory distress, Clear bilaterally - Abdomen Abdomen: Soft, Non tender, Other (no pulsatile mass) - Derm Derm: Normal color - Neuro Neuro: Alert and oriented X 3, grocery specialist 2-12 intact, No motor deficit, No sensory deficit, Normal speech Eye Opening: Spontaneous Motor: Obeys Commands Verbal: Oriented GCS Score: 15 Results - Vitals Vitals: Vital Signs - 24 hr 01/16/18 01/16/18 01/16/18 07:56 09:26 09:27 Temperature 36.7 C Heart Rate 68 Heart Rate [ 69 Sitting] Heart Rate [ 74 Standing] Heart Rate [ 63 Supine] Respiratory 17 Rate Blood Pressure 116/77 Blood Pressure 108/82 H [Sitting] Blood Pressure 112/91 H [Standing] Blood Pressure 111/74 [Supine] O2 Saturation 100 01/16/18 11:58 Temperature 36.2 C L Heart Rate 65 Heart Rate [ Sitting] Heart Rate [ Standing] Heart Rate [ Supine] Respiratory 16 Rate Blood Pressure 116/74 Blood Pressure [Sitting] Blood Pressure [Standing] Blood Pressure [Supine] O2 Saturation 98 Oxygen O2 Source Room air - EKG (time done) 0800 Rate: Rate (enter#) (66) [place]: Normal Intervals: Normal [place] QRS: Normal Ischemia: Normal ST segments - Labs Labs: Laboratory Tests 01/16/18 01/16/18 01/16/18 08:24 08:24 08:24 WBC 3.5 L RBC 4.70 Hgb 14.9 Hct 43.2 MCV 91.8 MCH 31.6 H MCHC 34.5 RDW 12.0 Plt Count 215 MPV 7.8 L Neut # 1.6 Lymph # 1.5 [place] # 0.4 Eos # 0.0 Baso # 0.1 Absolute Nucleated RBC 0.00 Nucleated RBC % 0.0 Sodium 135 Potassium 3.8 Chloride 101 Carbon Dioxide 27 Anion Gap 7.0 BUN 12 Creatinine 0.6 Estimated GFR (MDRD) 101 Glucose 86 Lactic Acid Calcium 8.6 TSH < 0.08 L Urine Color Urine Clarity Urine pH Ur Specific [place] Urine Protein Urine Glucose (UA) Urine Ketones Urine Occult Blood Urine Nitrite Urine Bilirubin Urine Urobilinogen Ur Leukocyte Esterase Ur Microscopic Review Urine Culture Comments 01/16/18 01/16/18 09:13 11:45 WBC RBC Hgb Hct MCV MCH MCHC RDW Plt Count MPV Neut # Lymph # [place] # Eos # Baso # Absolute Nucleated RBC Nucleated RBC % Sodium Potassium Chloride Carbon Dioxide Anion Gap BUN Creatinine Estimated GFR (MDRD) Glucose Lactic Acid 0.7 Calcium TSH Urine Color LIGHT YELLOW Urine Clarity CLEAR Urine pH 6.5 Ur Specific [place] <=1.005 Urine Protein NEGATIVE Urine Glucose (UA) NEGATIVE Urine Ketones NEGATIVE Urine Occult Blood NEGATIVE Urine Nitrite NEGATIVE Urine Bilirubin NEGATIVE Urine Urobilinogen 0.2 (NORMAL) Ur Leukocyte Esterase NEGATIVE Ur Microscopic Review NOT INDICATED Urine Culture Comments NOT INDICATED - Rads (name of study) CXR Radiology: See rad report (NACPD) PD MEDICAL DECISION MAKING - ED course ED course: pt feeling better after meds and IVF states her BP usually runs low not orthostatic no infection other than otitis very low TSH noted and d/w pt had recent extensive inpt wup feel safe to dc Departure - Departure Disposition: 01 Home, Self Care Clinical Impression: Dizziness, Low TSH level Serous otitis media Qualifiers: Chronicity: acute Laterality: bilateral Recurrence: not specified as recurrent Qualified Code(s): H65.03 - Acute serous otitis media, bilateral Condition: Good Instructions: ED Vertigo Unspecified Follow-Up: Kee,Ana A, MD [Primary Care Provider] - (for a recheck and for further thyroid studies after you have been off your thyroid supplement) Prescriptions: Azithromycin [Zithromax] 250 mg PO DAILY #6 tablet Meclizine [Antivert] 25 mg PO Q6H PRN #20 tablet PRN Reason: Dizziness Oxymetazoline HCl [Afrin] 2 spray NS BID PRN #1 bottle PRN Reason: nasal sinus ear congestion Comments: Your blood tests indicate your thyroid is not well controlled on the medication you are on - it looks like you have excessive thyroid hormone which can cause symptoms of hyperthyroidism. Please stop your thyroid supplement for now and see you PMD for further testing and medical management There is a lot of fluid and pressure behind your ear drums so I have prescribed an antibiotic you are not allergic to - please do not take zofran while you are on this antibiotic because they interact. Use the afrin to help relieve the middle ear pressure. And the meclizine as needed for dizziness Rest and drink plenty of fluids Return if worse
[2018-01-16 08:30] LABS: BASOPHILS # (AUTO) 0.1 10^3/uL (0.0-0.1); BASOPHILS % (AUTO) 1.7 %; EOSINOPHILS % (AUTO) 0.7 %; HGB - HEMOGLOBIN 14.9 g/dL (12.0-16.0); LYMPHOCYTES # (AUTO) 1.5 10^3/uL (1.5-3.5); LYMPHOCYTES % (AUTO) 42.8 %; MEAN CORPUSCULAR HEMOGLOBIN 31.6 pg (27.0-31.0); MEAN CORPUSCULAR HGB CONC 34.5 g/dL (32.0-36.0); MEAN CORPUSCULAR VOLUME 91.8 fL (81.0-99.0); MEAN PLATELET VOLUME 7.8 fL (7.9-10.8); MONOCYTES # (AUTO) 0.4 10^3/uL (0.0-1.0); MONOCYTES % (AUTO) 10.8 %; NEUTROPHILS # (AUTO) 1.6 10^3/uL (1.5-6.6); PLT - PLATELET COUNT 215 10^3/uL (130-450); WHITE BLOOD COUNT 3.5 x10^3/uL (4.8-10.8)
[2018-01-16 08:39] LABS: CALCIUM 8.6 mg/dL (8.5-10.3); CREATININE 0.6 mg/dL (0.4-1.0)
[2018-01-16] MEDS ORDERED: SODIUM CHLORIDE 0.9% 1,000 ML IV ONE (08:47)
[2018-01-16] MEDS ORDERED: MECLIZINE 12.5 MG TABLET PO STA (08:48)
[2018-01-16] MEDS ORDERED: OXYMETAZOLINE NASAL SPRAY NAS STA (08:48)
--- NOTE | 2018-01-16 10:06 | XRAY Report ---
EXAM: CHEST RADIOGRAPHY EXAM DATE: 01/16/2018 09:56 AM. CLINICAL HISTORY: Cough. Shortness of breath. Hypotension. COMPARISON: 01/11/2018. TECHNIQUE: 2 views. FINDINGS: Lungs/Pleura: Mild hyperinflation. No new infiltrate or vascular congestion. No pleural effusion or p neumothorax. Mediastinum: Heart and mediastinal contours are unremarkable. Other: No fracture evident. IMPRESSION: 1. No acute cardiopulmonary findings. 2. Mild hyperinflation. [facility] Referring Provider Line: [phone] SITE ID: [id number]
--- NOTE | 2018-01-16 10:06 | XRAY Preliminary Report ---
Exam: XR CHEST 2 VIEW X-RAY IMPRESSION: 1. No acute cardiopulmonary findings. 2. Mild hyperinflation. [facility] SITE ID: [id number]
[2018-01-16 11:53] LABS: BILIRUBIN,URINE NEGATIVE (NEGATIVE); GLUCOSE, URINE (UA) NEGATIVE (NEGATIVE); KETONES,URINE (UA) NEGATIVE (NEGATIVE); LEUKOCYTE ESTERASE, URINE NEGATIVE (NEGATIVE); NITRITE,URINE NEGATIVE (NEGATIVE); OCCULT BLOOD,URINE NEGATIVE (NEGATIVE); PH,URINE 6.5 PH (5.0-7.5); PROTEIN,URINE NEGATIVE (NEGATIVE); UROBILINOGEN,URINE 0.2 (NORMAL) E.U./dL (NORMAL)
[2018-01-16 11:54] LABS: CLARITY,URINE CLEAR (CLEAR)
[2018-01-16 13:18] VITALS: BP 122/77
== END 2018-01-16 13:16 | disposition home or self-care (01) ==
LOC: ED 07:52
DX: R42 Dizziness and giddiness (principal); R94.6 Abnormal results of thyroid function studies; H65.03 Acute serous otitis media, bilateral; R94.31 Abnormal electrocardiogram [ECG] [EKG]; E03.9 Hypothyroidism, unspecified
CPT/HCPCS: 36415; 51701; 71046; 80048; 81003; 83605; 84443; 85025; 87040; 93005; 96360; 96361; 99283; A9270; 81001; 87086

== ENCOUNTER 2019-01-17 00:54 | Emergency (ER) | payer BC ==
[2019-01-17] MEDS ORDERED: diphenhydrAMINE 25 MG CAPSULE PO STA (01:07)
--- NOTE | 2019-01-17 01:48 | ED Physician Documentation ---
History of Present Illness - Stated complaint Stated Complaint: TIGHT THROAT - Chief complaint Chief Complaint: Allergic Rx - History obtained from History obtained from: Patient - History of Present Illness Timing: Enter time (23:00), Today Pain level max: 0 Pain level now: 0 Improved by: nothing Worsened by: no apparent exacerbating factors - Additonal information Additional information: patient took first dose of Cipro today at approximately 3:30 PM; this was prescribed by PMD for mild abdominal discomfort and bloating sensation which patient feels is similar to early stages of previous episodes of diverticulitis. At approximately 11 PM tonight, she developed tightness in her throat, and her throat felt "itchy" and she describes mild difficulty swallowing. She denies dyspea, rash. 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 Neuro: Other - Present Medications Home Medications: Ambulatory Orders Medication Instructions Recorded Confirmed Calcium Carbonate/Vitamin D3 1 each PO DAILY 09/24/17 01/11/18 [Calcium 250-Vit D3 125 Tablet] Digestive 8/L.acidoph/Pectin 1 tab PO DAILY 09/24/17 01/11/18 [Digestive Enzymes Tablet] Magnesium 250 mg PO DAILY 09/24/17 01/11/18 Thyroid,Pork [Nature-Throid] 32.5 mg PO QDAC 01/11/18 01/11/18 Acetaminophen [Tylenol] 650 mg PO Q6H PRN #30 tab 01/12/18 Ondansetron Odt [Zofran] 4 mg TL Q6H PRN #20 tablet 01/12/18 Azithromycin [Zithromax] 250 mg PO DAILY #6 tablet 01/16/18 Meclizine [Antivert] 25 mg PO Q6H PRN #20 tablet 01/16/18 Oxymetazoline HCl [Afrin] 2 spray NS BID PRN #1 bottle 01/16/18 Clindamycin HCl [Clindamycin 300MG 300 mg PO Q6H #28 capsule 01/17/19 CAP] predniSONE [Prednisone] 40 mg PO DAILY 3 Days #6 tablet 01/17/19 - Allergies Allergies/Adverse Reactions: Allergies Allergy/AdvReac Type Severity Reaction Status Date / Time ciprofloxacin [From Cipro] Allergy Rash Verified 01/17/19 01:03 Penicillins Allergy Unknown Verified 01/17/19 01:03 Sulfa (Sulfonamide Allergy Rash Verified 01/17/19 01:03 Antibiotics) - Social History Does the pt smoke?: No Smoking Status: Never smoker Does the pt drink ETOH?: No Does the pt have substance abuse?: No - Immunizations Immunizations are current?: Yes - POLST Patient has POLST: No POLST Status: Full Code PD ED PE NORMAL - Vitals Vital signs reviewed: Yes - General General: Alert and oriented X 3, No acute distress, Well developed/nourished - HEENT HEENT: Moist mucous membranes, Pharynx benign, Other (no apparent oropharyngeal swelling/erythema) - Respiratory Respiratory: No respiratory distress, Clear bilaterally - Abdomen Abdomen: Soft, Non tender, Non distended - Derm Derm: Normal color, Warm and dry, No rash Results - Vitals Vitals: Vital Signs - 24 hr 01/17/19 01/17/19 00:58 02:08 Temperature 36.9 C Heart Rate 72 62 Respiratory 16 17 Rate Blood Pressure 146/82 H 142/81 H O2 Saturation 100 99 Oxygen O2 Source Room air PD MEDICAL DECISION MAKING - ED course Complexity details: considered differential, d/w patient Departure - Departure Disposition: 01 Home, Self Care Clinical Impression: Allergic reaction caused by a drug Condition: Good Instructions: ED Drug React Allergic Follow-Up: Jaci Rosales JR, [place] [Primary Care Provider] - Prescriptions: Clindamycin HCl [Clindamycin 300MG CAP] 300 mg PO Q6H #28 capsule predniSONE [Prednisone] 40 mg PO DAILY 3 Days #6 tablet Comments: Stop the Cipro and start taking the clindamycin as prescribed. Take the steroid (prednisone) as prescribed IF THE SYMPTOMS ARE NOT CONTROLLED WITH BENADRYL ALONE. Discharge Date/Time: 01/17/19 02:11
[2019-01-17 02:09] VITALS: BP 142/81
== END 2019-01-17 02:11 | disposition home or self-care (01) ==
LOC: ED 00:54
DX: R09.89 Other specified symptoms and signs involving the circulatory and respiratory systems (principal); R13.10 Dysphagia, unspecified; T36.8X5A Adverse effect of other systemic antibiotics, initial encounter
CPT/HCPCS: 99283; A9270

== ENCOUNTER 2021-05-13 17:51 | Emergency (ER) | payer BC, MEDICARE ==
--- NOTE | 2021-05-13 18:47 | XRAY Report ---
PROCEDURE: Finger(s) LT INDICATIONS: Trauma TECHNIQUE: AP hand, 2 views of the fifth finger(s) acquired. COMPARISON: None. FINDINGS: Bones: Posterior dislocation of the fifth digit middle phalanx in relation to the proximal phalanx. N o obvious fracture. No suspicious bony lesions. Soft tissues: No suspicious soft tissue calcifications. IMPRESSION: Posterior dislocation of the fifth digit middle phalanx. Reviewed by: Omar Schuster MD on 05/13/2021 6:46 PM PDT Approved by: Omar Schuster MD on 05/13/2021 6:46 PM PDT Station ID: [id number]
--- NOTE | 2021-05-13 19:18 | ED Physician Documentation ---
History of Present Illness - Stated complaint Stated Complaint: LT FINGER/HEAD INJ - Chief complaint Chief Complaint: Trauma Ext - History obtained from History obtained from: Patient - Additonal information Additional information: 65-year-old woman presents status post fall on her treadmill with abrasion to the right forehead with hematoma. Also with abrasion to the right wrist deformity to the left fifth finger. Patient is alert and oriented without headache, nausea, vision changes, lightheadedness. No neuro deficits. Able to move the right wrist without issue. Review of Systems GI: denies: Nausea Skin: reports: Abrasion (s) Musculoskeletal: reports: Extremity pain. 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 Neuro: Other - Present Medications Home Medications: Ambulatory Orders Medication Instructions Recorded Confirmed Calcium Carbonate/Vitamin D3 1 each PO DAILY 09/24/17 01/11/18 [Calcium 250-Vit D3 125 Tablet] Digestive 8/L.acidoph/Pectin 1 tab PO DAILY 09/24/17 01/11/18 [Digestive Enzymes Tablet] Magnesium 250 mg PO DAILY 09/24/17 01/11/18 Thyroid,Pork [Nature-Throid] 32.5 mg PO QDAC 01/11/18 01/11/18 Acetaminophen [Tylenol] 650 mg PO Q6H PRN #30 tab 01/12/18 Ondansetron Odt [Zofran] 4 mg TL Q6H PRN #20 tablet 01/12/18 Azithromycin [Zithromax] 250 mg PO DAILY #6 tablet 01/16/18 Meclizine [Antivert] 25 mg PO Q6H PRN #20 tablet 01/16/18 Oxymetazoline HCl [Afrin] 2 spray NS BID PRN #1 bottle 01/16/18 Clindamycin HCl [Clindamycin 300MG 300 mg PO Q6H #28 capsule 01/17/19 CAP] predniSONE [Prednisone] 40 mg PO DAILY 3 Days #6 tablet 01/17/19 - Allergies Allergies/Adverse Reactions: Allergies Allergy/AdvReac Type Severity Reaction Status Date / Time ciprofloxacin [From Cipro] Allergy Rash Verified 05/13/21 18:11 Penicillins Allergy Unknown Verified 05/13/21 18:11 Sulfa (Sulfonamide Allergy Rash Verified 05/13/21 18:11 Antibiotics) - Social History Does the pt smoke?: No Smoking Status: Never smoker Does the pt drink ETOH?: No Does the pt have substance abuse?: No - Immunizations Immunizations are current?: Yes - POLST Patient has POLST: No POLST Status: Full Code PD ED PE NORMAL - Vitals Vital signs reviewed: Yes - General General: Alert and oriented X 3, No acute distress, Well developed/nourished - HEENT HEENT: Atraumatic, PERRL, EOMI, Moist mucous membranes, Pharynx benign, Other (Head is atraumatic with the exception of a small right frontal hematoma with overlying abrasion) - Neck Neck: No bony TTP - Back Back: No spinal TTP - Derm Derm: Normal color, Warm and dry, Other (Abrasion to right wrist) - Extremities Extremities: Other (Left fifth distal phalanx visible deformity. Good capillary refill.) - Neuro Neuro: Alert and oriented X 3, financial auditor 2-12 intact, No motor deficit, No sensory deficit, Normal speech, Other (ambulatory without difficulty) - Psych Psych: Normal mood, Normal affect Results - Vitals Vitals: Vital Signs - 24 hr 05/13/21 18:07 Temperature 36.4 C L Heart Rate 65 Respiratory 16 Rate Blood Pressure 126/72 O2 Saturation 100 Oxygen O2 Source Room air Procedures - Reduction Body part reduced: Left, Finger Fracture or dislocation: Dislocation Anesthesia: Other (none needed. patient's dislocation resolved with traction. splint and apolinar tape applied. patient will f.u with ortho) Reduction aftercare: NV intact, Alignment improved, Splint applied PD MEDICAL DECISION MAKING - ED course ED course: 65-year-old woman presents for evaluation after a fall. She has no neuro deficits despite a small hematoma to the right forehead. Well-appearing and asymptomatic aside from left finger pain and deformity. Finger was reduced without issue. Patient discharged home with return precautions. Plan to follow-up outpatient with orthopedics. Departure - Departure Disposition: 01 Home, Self Care Clinical Impression: Finger dislocation Condition: Good Instructions: ED Dislocation Finger Redu, ED Head Injury Closed Follow-Up: Lazaor Choi MD [Provider Admit Priv/Credential] - Comments: You are seen in the emergency department for evaluation after a fall on your treadmill. Your right fifth finger was dislocated and we reduced it, meaning that we put it back into normal alignment. You need to keep the splint on for at least a week until you follow-up with orthopedics. Return to the emergency department if you have any new or worsening symptoms or other concerns.
[2021-05-13 19:19] VITALS: BP 135/87
== END 2021-05-13 19:22 | disposition home or self-care (01) ==
LOC: ED 17:51
DX: S63.257A Unspecified dislocation of left little finger, initial encounter (principal); W31.89XA Contact with other specified machinery, initial encounter; Y93.A1 Activity, exercise machines primarily for cardiorespiratory conditioning
CPT/HCPCS: 26755